=== PATIENT | male | born 1960 | race Caucasian/White ===

== ENCOUNTER 2020-04-24 09:26 | Inpatient (IN) | payer OTHER ==
[2020-04-24] MEDS ORDERED: Sodium Chloride 0.9% 10 ML Syringe FLUSH PRN (09:32)
[2020-04-24] MEDS ORDERED: Ketorolac 30 MG/ML SDV IVPUSH ONE (09:33)
[2020-04-24] MEDS ORDERED: Sodium Chloride 0.9% 1,000 ML IV SCH (09:45)
--- NOTE | 2020-04-24 11:34 | EDM.PDOC ---
ED HPI GENERAL MEDICAL PROBLEM - General Chief Complaint: Respiratory Problem Stated Complaint: [facility] Time Seen by Provider: 04/24/20 09:34 Source of Information: Reports: Patient History Limitations: Reports: No Limitations - History of Present Illness INITIAL COMMENTS - FREE TEXT/NARRATIVE: The patient presents by [facility] for a sore throat and difficulty breathing. He said this started yesterday with a sore throat and then this morning he had some more pain and trouble swallowing. He also has trouble breathing. He has a productive cough. He has a subjective fever and he has chills. He has no abdominal pain, nausea or vomiting. He has a history of hypertension, hypercholesterolemia, diabetes, and obesity. He does not smoke and he has no history of lung problems. Onset: Gradual Duration: Day(s): (yesterday) Location: Reports: Other (throat) Quality: Reports: Sharp Severity: Moderate Improves with: Reports: None Worsens with: Reports: None Associated Symptoms: Reports: Cough, Fever/Chills, Shortness of Breath. 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) ED ROS GENERAL - Review of Systems Review Of Systems: See Below Constitutional: Reports: Fever, Chills HEENT: Reports: Throat Pain Respiratory: Reports: Shortness of Breath, Cough Cardiovascular: Reports: No Symptoms Endocrine: Reports: No Symptoms GI/Abdominal: Reports: No Symptoms : Reports: No Symptoms ED EXAM, GENERAL - Physical Exam Exam: See Below Exam Limited By: No Limitations General Appearance: Alert, No Apparent Distress Ears: Normal External Exam Nose: Normal Inspection Throat/Mouth: Other (erythema and mild edema) Head: Atraumatic, Normocephalic Neck: Normal Inspection, Supple, Non-Tender Respiratory/Chest: No Respiratory Distress, Lungs Clear, Normal Breath Sounds Cardiovascular: Regular Rate, Rhythm, No Edema, No Murmur GI/Abdominal: Soft, Non-Tender, No Organomegaly, No Mass Back Exam: Normal Inspection Extremities: Normal Inspection Course - Vital Signs Last Recorded V/S: Last Vital Signs Temp 96.8 F L 04/24/20 09:32 Pulse 87 04/24/20 09:32 Resp 20 04/24/20 09:32 BP 156/88 H 04/24/20 09:32 Pulse Ox 89 L 04/24/20 09:32 - Orders/Labs/Meds Orders: Active Orders 24 hr Category Date Time Status Cardiac Monitoring [RC] . DIRECTED Care 04/24/20 09:32 Active Oxygen Therapy [RC] PRN Care 04/24/20 09:32 Active Peripheral IV Care [RC] . DIRECTED Care 04/24/20 09:33 Active Chest 1V Frontal [CR] Stat Exams 04/24/20 09:33 Taken Neck Soft Tissue [CR] Stat Exams 04/24/20 09:34 Taken CULTURE BLOOD [BC] Stat Lab 04/24/20 11:27 Ordered CULTURE BLOOD [BC] Stat Lab 04/24/20 11:27 Ordered CULTURE STREP A CONFIRMATION [RM] Stat Lab 04/24/20 09:46 Results D-DIMER QUANTITATIVE [COAG] Stat Lab 04/24/20 11:28 Ordered FERRITIN [CHEM] Stat Lab 04/24/20 11:28 Ordered LACTATE DEHYDROGENASE,LDH [CHEM] Stat Lab 04/24/20 11:28 Ordered PROCALCITONIN [REF] Stat Lab 04/24/20 11:27 Ordered STREP SCRN A RAPID W CULT CONF [RM] Stat Lab 04/24/20 09:46 Results Sodium Chloride 0.9% [Normal Saline] 1,000 ml Med 04/24/20 09:45 Active IV .BOLUS Sodium Chloride 0.9% [Saline Flush] Med 04/24/20 09:32 Active 10 ml FLUSH ASDIRECTED PRN Blood Culture x2 Reflex Set [OM.PC] Stat Oth 04/24/20 11:27 Ordered Peripheral IV Insertion Adult [OM.PC] Stat Oth 04/24/20 09:32 Ordered Medication Orders Sodium Chloride (Normal Saline) 1,000 mls @ 1,000 mls/hr IV .BOLUS CAM Last Admin: 04/24/20 09:44 Dose: 1,000 mls/hr Documented by: FAHAD Sodium Chloride (Saline Flush) 10 ml FLUSH ASDIRECTED PRN PRN Reason: Keep Vein Open Last Admin: 04/24/20 09:44 Dose: 10 ml Documented by: FAHAD Labs: Laboratory Tests 04/24/20 04/24/20 04/24/20 Range/Units 09:51 10:01 10:01 WBC 11.54 H (4.23-9.07) K/mm3 RBC 6.28 H (4.63-6.08) M/mm3 Hgb 18.3 H (13.7-17.5) gm/dl Hct 56.0 H (40.1-51.0) % MCV 89.2 (79.0-92.2) fl MCH 29.1 (25.7-32.2) pg MCHC 32.7 (32.2-35.5) g/dl RDW Std Deviation 49.9 H (35.1-43.9) fL Plt Count 357 H (163-337) K/mm3 MPV 8.3 L (9.4-12.3) fl Neut % (Auto) 82.4 H (34.0-67.9) % Lymph % (Auto) 10.4 L (21.8-53.1) % [place] % (Auto) 6.6 (5.3-12.2) % Eos % (Auto) 0.3 L (0.8-7.0) Baso % (Auto) 0.1 (0.1-1.2) % Neut # (Auto) 9.51 H (1.78-5.38) K/mm3 Lymph # (Auto) 1.20 L (1.32-3.57) K/mm3 [place] # (Auto) 0.76 (0.30-0.82) K/mm3 Eos # (Auto) 0.04 (0.04-0.54) K/mm3 Baso # (Auto) 0.01 (0.01-0.08) K/mm3 Manual Slide Review Abnormal smear Sodium (136-145) mEq/L Potassium (3.5-5.1) mEq/L Chloride (98-107) mEq/L Carbon Dioxide (21-32) mEq/L Anion Gap (5-15) BUN (7-18) mg/dL Creatinine (0.7-1.3) mg/dL Est Cr Clr Drug Dosing mL/min Estimated GFR (MDRD) (>60) mL/min BUN/Creatinine Ratio (14-18) Glucose (74-106) mg/dL Lactic Acid (0.4-2.0) mmol/L Calcium (8.5-10.1) mg/dL Total Bilirubin (0.2-1.0) mg/dL AST (15-37) U/L ALT (16-63) U/L Alkaline Phosphatase (46-116) U/L C-Reactive Protein (<1.0) mg/dL Total Protein (6.4-8.2) g/dl Albumin (3.4-5.0) g/dl Globulin gm/dL Albumin/Globulin Ratio (1-2) Monoscreen Negative (NEGATIVE) SARS-CoV-2 RNA (LUIS ANTONIO) Positive H (NEGATIVE) 04/24/20 04/24/20 Range/Units 10:07 10:07 WBC (4.23-9.07) K/mm3 RBC (4.63-6.08) M/mm3 Hgb (13.7-17.5) gm/dl Hct (40.1-51.0) % MCV (79.0-92.2) fl MCH (25.7-32.2) pg MCHC (32.2-35.5) g/dl RDW Std Deviation (35.1-43.9) fL Plt Count (163-337) K/mm3 MPV (9.4-12.3) fl Neut % (Auto) (34.0-67.9) % Lymph % (Auto) (21.8-53.1) % [place] % (Auto) (5.3-12.2) % Eos % (Auto) (0.8-7.0) Baso % (Auto) (0.1-1.2) % Neut # (Auto) (1.78-5.38) K/mm3 Lymph # (Auto) (1.32-3.57) K/mm3 [place] # (Auto) (0.30-0.82) K/mm3 Eos # (Auto) (0.04-0.54) K/mm3 Baso # (Auto) (0.01-0.08) K/mm3 Manual Slide Review Sodium 138 (136-145) mEq/L Potassium 4.1 (3.5-5.1) mEq/L Chloride 100 (98-107) mEq/L Carbon Dioxide 27 (21-32) mEq/L Anion Gap 15.1 H (5-15) BUN 9 (7-18) mg/dL Creatinine 0.7 (0.7-1.3) mg/dL Est Cr Clr Drug Dosing 112.22 mL/min Estimated GFR (MDRD) > 60 (>60) mL/min BUN/Creatinine Ratio 12.9 L (14-18) Glucose 133 H (74-106) mg/dL Lactic Acid 1.2 (0.4-2.0) mmol/L Calcium 9.5 (8.5-10.1) mg/dL Total Bilirubin 1.5 H (0.2-1.0) mg/dL AST 19 (15-37) U/L ALT 32 (16-63) U/L Alkaline Phosphatase 72 (46-116) U/L C-Reactive Protein 1.5 H* (<1.0) mg/dL Total Protein 8.1 (6.4-8.2) g/dl Albumin 3.9 (3.4-5.0) g/dl Globulin 4.2 gm/dL Albumin/Globulin Ratio 0.9 L (1-2) Monoscreen (NEGATIVE) SARS-CoV-2 RNA (LUIS ANTONIO) (NEGATIVE) Meds: Medications Generic Name Dose Route Start Last Admin Trade Name Freq PRN Reason Stop Dose Admin Sodium Chloride 1,000 mls @ 1,000 mls/hr 04/24/20 09:45 04/24/20 09:44 Normal Saline IV 1,000 mls/hr .BOLUS CAM Administration Sodium Chloride 10 ml 04/24/20 09:32 04/24/20 09:44 Saline Flush FLUSH 10 ml ASDIRECTED PRN Administration Keep Vein Open Discontinued Medications Generic Name Dose Route Start Last Admin Trade Name Freq PRN Reason Stop Dose Admin Ketorolac Tromethamine 30 mg 04/24/20 09:33 04/24/20 09:44 Toradol IVPUSH 04/24/20 09:34 30 mg ONETIME ONE Administration - Re-Assessments/Exams Free Text/Narrative Re-Assessment/Exam: 04/24/20 11:37 I ordered oxygen, IV NS 1L bolus, labs, CXR, lateral x-ray of the neck, COVID 19 and strep. His strep is negative. 04/24/20 11:38 His WBC was elevated at 11.54. His Hgb was elevated at 18.3. His glucose was elevated at 133. His lactic acid is normal. His CRP is elevated at 1.5. His CXR shows chronic appearing interstitial change. No acute cardiopulmonary disease present. The x-ray of his neck shows normal soft tissue of the neck. His mono is negative. His COVID 19 is positive. I feel he may need to be admitted. I called Dr Johns and he agreed. I will give him a dose of dexamethasone. Departure - Departure Time of Disposition: 11:45 Disposition: Admitted As Inpatient 65 Condition: Poor Clinical Impression: COVID-19, Hypoxia, Viral pharyngitis - Discharge Information Referrals: PCP,Not In Area [Primary Care Provider] - Sepsis Event Note (ED) - Evaluation Sepsis Screening Result: No Definite Risk - Focused Exam Vital Signs: Vital Signs Temp Pulse Resp BP Pulse Ox 04/24/20 09:32 96.8 F L 87 20 156/88 H 89 L - My Orders Last 24 Hours: My Active Orders 04/24/20 09:32 Cardiac Monitoring [RC] . DIRECTED Oxygen Therapy [RC] PRN Sodium Chloride 0.9% [Saline Flush] 10 ml FLUSH ASDIRECTED PRN Peripheral IV Insertion Adult [OM.PC] Stat 04/24/20 09:33 Peripheral IV Care [RC] . DIRECTED Chest 1V Frontal [CR] Stat 04/24/20 09:34 Neck Soft Tissue [CR] Stat 04/24/20 09:45 Sodium Chloride 0.9% [Normal Saline] 1,000 ml IV .BOLUS 04/24/20 09:46 CULTURE STREP A CONFIRMATION [RM] Stat STREP SCRN A RAPID W CULT CONF [RM] Stat 04/24/20 11:27 CULTURE BLOOD [BC] Stat CULTURE BLOOD [BC] Stat PROCALCITONIN [REF] Stat Blood Culture x2 Reflex Set [OM.PC] Stat 04/24/20 11:28 D-DIMER QUANTITATIVE [COAG] Stat FERRITIN [CHEM] Stat LACTATE DEHYDROGENASE,LDH [CHEM] Stat - Assessment/Plan Last 24 Hours: My Active Orders 04/24/20 09:32 Cardiac Monitoring [RC] . DIRECTED Oxygen Therapy [RC] PRN Sodium Chloride 0.9% [Saline Flush] 10 ml FLUSH ASDIRECTED PRN Peripheral IV Insertion Adult [OM.PC] Stat 04/24/20 09:33 Peripheral IV Care [RC] . DIRECTED Chest 1V Frontal [CR] Stat 04/24/20 09:34 Neck Soft Tissue [CR] Stat 04/24/20 09:45 Sodium Chloride 0.9% [Normal Saline] 1,000 ml IV .BOLUS 04/24/20 09:46 CULTURE STREP A CONFIRMATION [RM] Stat STREP SCRN A RAPID W CULT CONF [RM] Stat 04/24/20 11:27 CULTURE BLOOD [BC] Stat CULTURE BLOOD [BC] Stat PROCALCITONIN [REF] Stat Blood Culture x2 Reflex Set [OM.PC] Stat 04/24/20 11:28 D-DIMER QUANTITATIVE [COAG] Stat FERRITIN [CHEM] Stat LACTATE DEHYDROGENASE,LDH [CHEM] Stat
[2020-04-24] MEDS ORDERED: Dexamethasone 4 MG/ML SDV IVPUSH ONE (11:36)
[2020-04-24] MEDS ORDERED: Iopamidol 755 Mg/ML 100 ML Bottle IVPUSH ONE (12:08)
[2020-04-24] MEDS ORDERED: Sodium Chloride 0.9% 10 ML Syringe FLUSH ONE (12:08)
[2020-04-24] MEDS ORDERED: Sodium Chloride 0.9% 100 ML IV SCH (12:15)
[2020-04-24] MEDS ORDERED: cefTRIAXone 2 GM in Sodium Chloride 0.9% 100 ML IV SCH (15:00)
--- NOTE | 2020-04-24 15:52 | PCM.HP.2 ---
H&P History of Present Illness - General Date of Service: 04/24/20 Admit Problem/Dx: Admission Diagnosis/Problem Admission Diagnosis/Problem Pharyngitis - History of Present Illness Initial Comments - Free Text/Narative: 59-year-old male with history of diabetes, hypertension, hyperlipidemia, and obesity presented to the emergency department with 1 to 2-day history of pharyngitis. He states that he was eating a [place] and found that he had to chew it very carefully and small yesterday. He then tried to drink some soup and was having difficulty swallowing it. Patient then fell asleep with his head down on a table and when he woke up he could not lift his head off his chin off of his chest without great difficulty and discomfort. He states he has had some difficulty breathing and is having difficulty with his secretions. He denies any GI complaints including nausea, vomiting, abdominal pain, or change in bowels. He has had some subjective fever. In the emergency department His strep test was done which was negative. He was swabbed for coronavirus which was positive. White count was slightly elevated 11.54 and hemoglobin was elevated at 18.3. Platelet count 357. Lactic acid was normal at 1.2 and C- reactive protein was slightly elevated at 1.5. He was given IV fluid bolus of 1000 mL. He had Toradol for pain. D-dimer was elevated at 2.19 so a CTA was attempted. Patient was unable to lay back flat because he felt like he could not breathe and he could not swallow. Patient was then moved to the medical floor for further evaluation and treatment. - Related Data Allergies/Adverse Reactions: Allergies Allergy/AdvReac Type Severity Reaction Status Date / Time No Known Allergies Allergy Verified 04/24/20 09:36 Home Medications: Home Meds Empagliflozin [Jardiance] 10 mg PO DAILY 04/24/20 [History] Liraglutide [Victoza] 1 injection SQ DAILY 04/24/20 [History] Simvastatin 20 mg PO DAILY 04/24/20 [History] lisinopriL [Prinivil] 20 mg PO DAILY 04/24/20 [History] metFORMIN HCl [Metformin HCl] 1,000 mg PO BID 04/24/20 [History] Past Medical History Cardiovascular History: Reports: High Cholesterol, Hypertension Other Respiratory History: COVID positive, pneumonia Neurological History: Reports: None Psychiatric History: Reports: None Endocrine/Metabolic History: Reports: Diabetes, Type II, Obesity/BMI 30+ - Infectious Disease History Infectious Disease History: Reports: None, Novel Coronavirus - Past Surgical History GI Surgical History: Reports: Hernia, Abdominal (as an ) Social & Family History - Family History Family Medical History: Noncontributory - Tobacco Use Tobacco Use Status *Q: Never Tobacco User Years of Tobacco use: 30 Packs/Tins Daily: 1 Second Hand Smoke Exposure: No - Caffeine Use Caffeine Use: Reports: Coffee Caffeine Use Comment: 8 cups a day - Recreational Drug Use Recreational Drug Use: No - Living Situation & Occupation Living situation: Reports: , with Spouse 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 Exam - Exam Exam: See Below - Vital Signs Vital Signs: Last Vital Signs Temp 98.6 F 04/24/20 13:52 Pulse 83 04/24/20 13:51 Resp 32 H 04/24/20 13:52 BP 160/79 H 04/24/20 13:52 Pulse Ox 90 L 04/24/20 13:51 Weight: 273 lb 6.4 oz - Exam Quality Assessment: Supplemental Oxygen (Nasal cannula at 4 L) General: Alert, Oriented, Moderate Distress HEENT: Conjunctiva Clear. No: Mucosa Moist & [place] (Mildly erythematous), Posterior Pharynx Clear (Exudate ) Neck: Trachea Midline. No: Supple, Full Range of Motion (Head was flexed to his chin and he had great difficulty lifting his chin.), Lymphadenopathy Lungs: Rales (Bibasilar). No: Normal Respiratory Effort (Increased) Cardiovascular: Regular Rate, Regular Rhythm GI/Abdominal Exam: Normal Bowel Sounds, Soft, Non-Tender, No Organomegaly, No Distention, No Abnormal Bruit, No Mass, Pelvis Stable Back Exam: Normal Inspection, Muscle Spasm (Neck) Extremities: Normal Inspection, Normal Range of Motion, Non-Tender, No Pedal Edema, Normal Capillary Refill Neuro Extensive - Mental Status: Alert, Oriented x3, Normal Mood/Affect, Normal Cognition, Memory Intact Psychiatric: Alert, Anxious - Patient Data Lab Results Last 24 hrs: Laboratory Results - last 24 hr 04/24/20 04/24/20 04/24/20 Range/Units 09:51 10:01 10:01 WBC 11.54 H (4.23-9.07) K/mm3 RBC 6.28 H (4.63-6.08) M/mm3 Hgb 18.3 H (13.7-17.5) gm/dl Hct 56.0 H (40.1-51.0) % MCV 89.2 (79.0-92.2) fl MCH 29.1 (25.7-32.2) pg MCHC 32.7 (32.2-35.5) g/dl RDW Std Deviation 49.9 H (35.1-43.9) fL Plt Count 357 H (163-337) K/mm3 MPV 8.3 L (9.4-12.3) fl Neut % (Auto) 82.4 H (34.0-67.9) % Lymph % (Auto) 10.4 L (21.8-53.1) % [place] % (Auto) 6.6 (5.3-12.2) % Eos % (Auto) 0.3 L (0.8-7.0) Baso % (Auto) 0.1 (0.1-1.2) % Neut # (Auto) 9.51 H (1.78-5.38) K/mm3 Lymph # (Auto) 1.20 L (1.32-3.57) K/mm3 [place] # (Auto) 0.76 (0.30-0.82) K/mm3 Eos # (Auto) 0.04 (0.04-0.54) K/mm3 Baso # (Auto) 0.01 (0.01-0.08) K/mm3 Manual Slide Review Abnormal smear D-Dimer, Quantitative (0.19-0.50) mg/L Sodium (136-145) mEq/L Potassium (3.5-5.1) mEq/L Chloride (98-107) mEq/L Carbon Dioxide (21-32) mEq/L Anion Gap (5-15) BUN (7-18) mg/dL Creatinine (0.7-1.3) mg/dL Est Cr Clr Drug Dosing mL/min Estimated GFR (MDRD) (>60) mL/min BUN/Creatinine Ratio (14-18) Glucose (74-106) mg/dL Lactic Acid (0.4-2.0) mmol/L Calcium (8.5-10.1) mg/dL Ferritin (26-388) ng/ml Total Bilirubin (0.2-1.0) mg/dL AST (15-37) U/L ALT (16-63) U/L Alkaline Phosphatase (46-116) U/L Lactate Dehydrogenase (85-227) U/L C-Reactive Protein (<1.0) mg/dL Total Protein (6.4-8.2) g/dl Albumin (3.4-5.0) g/dl Globulin gm/dL Albumin/Globulin Ratio (1-2) Monoscreen Negative (NEGATIVE) SARS-CoV-2 RNA (LUIS ANTONIO) Positive H (NEGATIVE) 04/24/20 04/24/20 04/24/20 Range/Units 10:01 10:01 10:01 WBC (4.23-9.07) K/mm3 RBC (4.63-6.08) M/mm3 Hgb (13.7-17.5) gm/dl Hct (40.1-51.0) % MCV (79.0-92.2) fl MCH (25.7-32.2) pg MCHC (32.2-35.5) g/dl RDW Std Deviation (35.1-43.9) fL Plt Count (163-337) K/mm3 MPV (9.4-12.3) fl Neut % (Auto) (34.0-67.9) % Lymph % (Auto) (21.8-53.1) % [place] % (Auto) (5.3-12.2) % Eos % (Auto) (0.8-7.0) Baso % (Auto) (0.1-1.2) % Neut # (Auto) (1.78-5.38) K/mm3 Lymph # (Auto) (1.32-3.57) K/mm3 [place] # (Auto) (0.30-0.82) K/mm3 Eos # (Auto) (0.04-0.54) K/mm3 Baso # (Auto) (0.01-0.08) K/mm3 Manual Slide Review D-Dimer, Quantitative 2.19 H (0.19-0.50) mg/L Sodium (136-145) mEq/L Potassium (3.5-5.1) mEq/L Chloride (98-107) mEq/L Carbon Dioxide (21-32) mEq/L Anion Gap (5-15) BUN (7-18) mg/dL Creatinine (0.7-1.3) mg/dL Est Cr Clr Drug Dosing mL/min Estimated GFR (MDRD) (>60) mL/min BUN/Creatinine Ratio (14-18) Glucose (74-106) mg/dL Lactic Acid (0.4-2.0) mmol/L Calcium (8.5-10.1) mg/dL Ferritin 120 (26-388) ng/ml Total Bilirubin (0.2-1.0) mg/dL AST (15-37) U/L ALT (16-63) U/L Alkaline Phosphatase (46-116) U/L Lactate Dehydrogenase 225 (85-227) U/L C-Reactive Protein (<1.0) mg/dL Total Protein (6.4-8.2) g/dl Albumin (3.4-5.0) g/dl Globulin gm/dL Albumin/Globulin Ratio (1-2) Monoscreen (NEGATIVE) SARS-CoV-2 RNA (LUIS ANTONIO) (NEGATIVE) 04/24/20 04/24/20 Range/Units 10:07 10:07 WBC (4.23-9.07) K/mm3 RBC (4.63-6.08) M/mm3 Hgb (13.7-17.5) gm/dl Hct (40.1-51.0) % MCV (79.0-92.2) fl MCH (25.7-32.2) pg MCHC (32.2-35.5) g/dl RDW Std Deviation (35.1-43.9) fL Plt Count (163-337) K/mm3 MPV (9.4-12.3) fl Neut % (Auto) (34.0-67.9) % Lymph % (Auto) (21.8-53.1) % [place] % (Auto) (5.3-12.2) % Eos % (Auto) (0.8-7.0) Baso % (Auto) (0.1-1.2) % Neut # (Auto) (1.78-5.38) K/mm3 Lymph # (Auto) (1.32-3.57) K/mm3 [place] # (Auto) (0.30-0.82) K/mm3 Eos # (Auto) (0.04-0.54) K/mm3 Baso # (Auto) (0.01-0.08) K/mm3 Manual Slide Review D-Dimer, Quantitative (0.19-0.50) mg/L Sodium 138 (136-145) mEq/L Potassium 4.1 (3.5-5.1) mEq/L Chloride 100 (98-107) mEq/L Carbon Dioxide 27 (21-32) mEq/L Anion Gap 15.1 H (5-15) BUN 9 (7-18) mg/dL Creatinine 0.7 (0.7-1.3) mg/dL Est Cr Clr Drug Dosing 112.22 mL/min Estimated GFR (MDRD) > 60 (>60) mL/min BUN/Creatinine Ratio 12.9 L (14-18) Glucose 133 H (74-106) mg/dL Lactic Acid 1.2 (0.4-2.0) mmol/L Calcium 9.5 (8.5-10.1) mg/dL Ferritin (26-388) ng/ml Total Bilirubin 1.5 H (0.2-1.0) mg/dL AST 19 (15-37) U/L ALT 32 (16-63) U/L Alkaline Phosphatase 72 (46-116) U/L Lactate Dehydrogenase (85-227) U/L C-Reactive Protein 1.5 H* (<1.0) mg/dL Total Protein 8.1 (6.4-8.2) g/dl Albumin 3.9 (3.4-5.0) g/dl Globulin 4.2 gm/dL Albumin/Globulin Ratio 0.9 L (1-2) Monoscreen (NEGATIVE) SARS-CoV-2 RNA (LUIS ANTONIO) (NEGATIVE) Result Diagrams: 04/24/20 10:01 04/24/20 10:07 Domenico Results Last 24 hrs: Microbiology 04/24/20 09:46 Group A Streptococcus Rapid Screen - Final Throat NEGATIVE STREP A SCREEN REFERENCE RANGE: NEGATIVE Sepsis Event Note - Evaluation Sepsis Screening Result: No Definite Risk - Focused Exam Vital Signs: Vital Signs Temp Temp Pulse Pulse Resp BP BP 04/24/20 13:52 98.6 F 32 H 160/79 H 04/24/20 13:51 83 154/101 H 04/24/20 13:05 98.1 F 77 16 103/90 04/24/20 12:07 98.2 F 82 20 139/66 04/24/20 09:32 96.8 F L 87 20 156/88 H Pulse Ox 04/24/20 13:52 04/24/20 13:51 90 L 04/24/20 13:05 92 L 04/24/20 12:07 98 04/24/20 09:32 89 L - Problem List (1) COVID-19 SNOMED Code(s): 190378429 ICD Code: U07.1 - COVID-19 Status: Acute (2) Hypoxia SNOMED Code(s): 703695418 ICD Code: R09.02 - HYPOXEMIA Status: Acute (3) Viral pharyngitis SNOMED Code(s): 6448430 ICD Code: J02.9 - ACUTE PHARYNGITIS, UNSPECIFIED Status: Acute Problem List Initiated/Reviewed/Updated: Yes Orders Last 24hrs: Active Orders 24 hr Category Date Time Status Admission Status [Patient Status] [ADT] Routine ADT 04/24/20 11:59 Active Cardiac Monitoring [RC] . DIRECTED Care 04/24/20 09:32 Active Oxygen Therapy [RC] PRN Care 04/24/20 09:32 Active Peripheral IV Care [RC] . DIRECTED Care 04/24/20 09:33 Active Ang Chest [CT] Stat Exams 04/24/20 11:52 Ordered Chest 1V Frontal [CR] Stat Exams 04/24/20 09:33 Taken Neck Soft Tissue [CR] Stat Exams 04/24/20 09:34 Taken CULTURE BLOOD [BC] Stat Lab 04/24/20 10:01 Received CULTURE BLOOD [BC] Stat Lab 04/24/20 10:11 Received CULTURE STREP A CONFIRMATION [RM] Stat Lab 04/24/20 09:46 Results PROCALCITONIN [REF] Stat Lab 04/24/20 10:01 Received STREP SCRN A RAPID W CULT CONF [RM] Stat Lab 04/24/20 09:46 Results Sodium Chloride 0.9% [Normal Saline] 1,000 ml Med 04/24/20 09:45 Active IV .BOLUS Sodium Chloride 0.9% [Saline Flush] Med 04/24/20 09:32 Active 10 ml FLUSH ASDIRECTED PRN cefTRIAXone [Rocephin] 2 gm Med 04/24/20 15:00 Active Sodium Chloride 0.9% [Normal Saline] 100 ml IV Q24H Blood Culture x2 Reflex Set [OM.PC] Stat Oth 04/24/20 11:27 Ordered Peripheral IV Insertion Adult [OM.PC] Stat Oth 04/24/20 09:32 Ordered Medication Orders Sodium Chloride (Normal Saline) 1,000 mls @ 1,000 mls/hr IV .BOLUS CAM Last Admin: 04/24/20 09:44 Dose: 1,000 mls/hr Documented by: FAHAD Ceftriaxone Sodium 2 gm/ (Sodium Chloride) 100 mls @ 200 mls/hr IV Q24H CAM Last Admin: 04/24/20 15:11 Dose: 200 mls/hr Documented by: GORDON Sodium Chloride (Saline Flush) 10 ml FLUSH ASDIRECTED PRN PRN Reason: Keep Vein Open Last Admin: 04/24/20 09:44 Dose: 10 ml Documented by: FAHAD Assessment/Plan Comment:: Assessment 59-year-old male with history of diabetes and hypertension presented to the emergency department with pharyngitis. Patient was found to be Covid positive and hypoxic. When he was moved to the floor his hypoxemia worsened and he required 4 L nasal cannula. There was concern about his airway since he was unable to swallow his secretions although his exam did not show a significant amount of swelling. Also, we were unable to do a CT scan of his neck or chest because he was unable to lay flat. It was felt we were unable to give him full and appropriate care here in the hospital and I requested Dr. Roldan to come back and reevaluate him. Dr. Roldan agreed that he would best be served if he was transferred to a tertiary care hospital where ENT could evaluate him and there would be more specialized care if he lost his airway. Patient returned to the emergency department where he was ultimately intubated so they can fly him to [place]. - Mortality Measure Prognosis:: Poor
[2020-04-24] MEDS ORDERED: Propofol 200 MG/20 ML SDV ONE (19:00)
[2020-04-24] MEDS ORDERED: Rocuronium 50 MG/5 ML Vial ONE ×2 (19:00→19:37)
[2020-04-24] MEDS ORDERED: LORazepam 2 MG/ML SDV IVPUSH ONE (19:00)
[2020-04-24] MEDS ORDERED: LORazepam 2 MG/ML SDV ONE (19:14)
[2020-04-24] MEDS ORDERED: REMDESIVIR (EUA) 100 MG ONE ×2 (20:12→20:15)
[2020-04-24] MEDS ORDERED: Sodium Chloride 0.9% 250 ML ONE (20:19)
--- NOTE | 2020-04-25 10:02 | CR ---
PROCEDURE INFORMATION: Exam: XR Soft Tissue Neck Exam date and time: 04/24/2020 10:22 AM Age: 59 years old Clinical indication: Other: Throat swelling TECHNIQUE: Imaging protocol: XR of the soft tissues of the neck. COMPARISON: No relevant prior studies available. FINDINGS: Airway: Normal. No abnormal narrowing. Soft tissues: Normal. Normal epiglottis. Bones/joints: Moderate grade degenerative changes are noted within the cervical spine. IMPRESSION: Normal soft tissue neck. Thank you for allowing us to participate in the care of your patient. Dictated and Authenticated by: Raman Zepeda MD 04/24/2020 11:49 AM Central Time ([place] & [place]) [facility]
--- NOTE | 2020-04-25 10:03 | CR ---
PROCEDURE INFORMATION: Exam: XR Chest, 1 View Exam date and time: 04/24/2020 10:26 AM Age: 59 years old Clinical indication: Chest pain; Type not specified TECHNIQUE: Imaging protocol: XR of the chest Views: 1 view. COMPARISON: No relevant prior studies available. FINDINGS: Lungs: Chronic appearing interstitial changes are present within the lungs. No pneumonia or pulmonary edema. Pleural space: Unremarkable. No pleural effusion. No pneumothorax. Heart/Mediastinum: Unremarkable. No cardiomegaly. Bones/joints: Unremarkable. IMPRESSION: Chronic appearing interstitial change. No acute cardiopulmonary disease present. Thank you for allowing us to participate in the care of your patient. Dictated and Authenticated by: Raman Zepeda MD 04/24/2020 11:48 AM Central Time ([place] & [place]) [facility]
--- NOTE | 2020-04-25 10:04 | CR ---
"PROCEDURE INFORMATION: Exam: XR Chest, 1 View Exam date and time: 04/24/2020 7:39 PM Age: 59 years old Clinical indication: Shortness of breath; Patient HX: S/P intubation and og tube placement, elevated BP and diminished breath sounds TECHNIQUE: Imaging protocol: XR of the chest Views: 1 view. COMPARISON: DX Chest 1V Frontal 04/24/2020 10:26 AM FINDINGS: Tubes, catheters and devices: Tip of endotracheal tube 3.7 cm proximal to the urszula. Tip of NG tube located in the left upper quadrant consistent with an intragastric location. Lungs: 2.3 cm opacity in the right pulmonary apex may indicate a focus of pneumonitis although a mass is not excluded. Apparent volume loss in the right hemithorax may be related to patient rotation. Increased parenchymal opacity right lower lobe may represent an infiltrate. Remaining lungs clear. Pleural space: Unremarkable. No pleural effusion. No pneumothorax. Heart/Mediastinum: Unremarkable. No cardiomegaly. Bones/joints: Unremarkable. IMPRESSION: 1. 2.3 cm opacity in the right pulmonary apex may indicate a focus of pneumonitis although a mass is not excluded. 2. Apparent volume loss in the right hemithorax may be related to patient rotation. Increased opacity right lower lobe may represent an infiltrate. Thank you for allowing us to participate in the care of your patient. JAMI MCINTYRE | Final Radiology Report CONFIDENTIALITY STATEMENT This report is intended only for use by the referring physician, and only in accordance with law. If you received this in error, call [phone]. Page 2 of 2 Dictated and Authenticated by: Xavier Jay MD 04/24/2020 9:34 PM Central Time ([place] & [place]) RUSTY"
--- NOTE | 2020-04-25 22:14 | PCM.DCSUM1 ---
Discharge Summary - Hospital Course HPI Initial Comments: 59-year-old male with history of diabetes, hypertension, hyperlipidemia, and obesity presented to the emergency department with 1 to 2-day history of pharyngitis. He states that he was eating a [place] and found that he had to chew it very carefully and small yesterday. He then tried to drink some soup and was having difficulty swallowing it. Patient then fell asleep with his head down on a table and when he woke up he could not lift his head off his chin off of his chest without great difficulty and discomfort. He states he has had some difficulty breathing and is having difficulty with his secretions. He denies any GI complaints including nausea, vomiting, abdominal pain, or change in bowels. He has had some subjective fever. In the emergency department His strep test was done which was negative. He was swabbed for coronavirus which was positive. White count was slightly elevated 11.54 and hemoglobin was elevated at 18.3. Platelet count 357. Lactic acid was normal at 1.2 and C- reactive protein was slightly elevated at 1.5. He was given IV fluid bolus of 1000 mL. He had Toradol for pain. D-dimer was elevated at 2.19 so a CTA was attempted. Patient was unable to lay back flat because he felt like he could not breathe and he could not swallow. Patient was then moved to the medical floor for further evaluation and treatment. - Discharge Data Discharge Date: 04/24/20 Discharge Disposition: DC/Tfer to Acute Hospital 02 Condition: Good - Referral to Home Health Primary Care Physician: PCP Not In Area - Discharge Diagnosis/Problem(s) (1) COVID-19 SNOMED Code(s): 830808742 ICD Code: U07.1 - COVID-19 Status: Acute (2) Hypoxia SNOMED Code(s): 197779290 ICD Code: R09.02 - HYPOXEMIA Status: Acute (3) Viral pharyngitis SNOMED Code(s): 4377428 ICD Code: J02.9 - ACUTE PHARYNGITIS, UNSPECIFIED Status: Acute - Patient Summary/Data Hospital Course: 59-year-old male with history of diabetes and hypertension presented to the emergency department with pharyngitis. Patient was found to be Covid positive and hypoxic. When he was moved to the floor his hypoxemia worsened and he required 4 L nasal cannula. There was concern about his airway since he was unable to swallow his secretions although his exam did not show a significant amount of swelling. Also, we were unable to do a CT scan of his neck or chest because he was unable to lay flat. It was felt we were unable to give him full and appropriate care here in the hospital and I requested Dr. Roldan to come back and reevaluate him. Dr. Roldan agreed that he would best be served if he was transferred to a tertiary care hospital where ENT could evaluate him and there would be more specialized care if he lost his airway. Patient returned to the emergency department where he was ultimately intubated so they can fly him to [place]. - Discharge Plan Home Medications: Home Meds Empagliflozin [Jardiance] 10 mg PO DAILY 04/24/20 [History] Liraglutide [Victoza] 1 injection SQ DAILY 04/24/20 [History] Simvastatin 20 mg PO DAILY 04/24/20 [History] lisinopriL [Prinivil] 20 mg PO DAILY 04/24/20 [History] metFORMIN HCl [Metformin HCl] 1,000 mg PO BID 04/24/20 [History] Forms: ED Department Discharge Referrals: PCP,Not In Area [Primary Care Provider] - - Discharge Summary/Plan Comment DC Time >30 min.: No - Patient Data Vitals - Most Recent: Last Vital Signs Temp 98.6 F 04/24/20 13:52 Pulse 72 04/24/20 18:22 Resp 32 H 04/24/20 13:52 BP 160/79 H 04/24/20 13:52 Pulse Ox 92 L 04/24/20 18:22 Weight - Most Recent: 273 lb 6.4 oz Lab Results - Last 24 hrs: Laboratory Results - last 24 hr 04/24/20 Range/Units 10:01 Procalcitonin <0.05 (<0.10) ng/mL GOLD Results - Last 24 hrs: Microbiology 04/24/20 10:11 Aerobic Blood Culture - Preliminary Blood - Venous - Lab Draw NO GROWTH AFTER 1 DAY Anaerobic Blood Culture - Preliminary NO GROWTH AFTER 1 DAY 04/24/20 10:01 Aerobic Blood Culture - Preliminary Blood - Venous NO GROWTH AFTER 1 DAY Anaerobic Blood Culture - Preliminary NO GROWTH AFTER 1 DAY 04/24/20 09:46 Quick Strep Confirmation Culture - Preliminary Throat Group A Streptococcus Rapid Screen - Final NEGATIVE STREP A SCREEN REFERENCE RANGE: NEGATIVE Med Orders - Current: Current Medications Discontinued Medications Dexamethasone (Dexamethasone) 6 mg IVPUSH ONETIME ONE Stop: 04/24/20 11:37 Last Admin: 04/24/20 12:05 Dose: 6 mg Documented by: Sodium Chloride (Normal Saline) 1,000 mls @ 1,000 mls/hr IV .BOLUS CAM Last Admin: 04/24/20 09:44 Dose: 1,000 mls/hr Documented by: Sodium Chloride (Normal Saline) 100 mls @ 60 mls/hr IV ASDIRECTED CAM Ceftriaxone Sodium 2 gm/ (Sodium Chloride) 100 mls @ 200 mls/hr IV Q24H CAM Last Admin: 04/24/20 15:11 Dose: 200 mls/hr Documented by: Remdesivir 200 mg/ Sodium (Chloride) 250 mls @ 250 mls/hr IV ONETIME ONE Stop: 04/24/20 20:09 Last Admin: 04/24/20 20:26 Dose: 250 mls/hr Documented by: Remdesivir (Remdesivir (Eua)) Confirm Administered Dose 100 mls @ as directed .ROUTE .STK-MED ONE Stop: 04/24/20 20:13 Remdesivir (Remdesivir (Eua)) Confirm Administered Dose 100 mls @ as directed .ROUTE .STK-MED ONE Stop: 04/24/20 20:16 Sodium Chloride (Normal Saline) Confirm Administered Dose 250 mls @ as directed .ROUTE .STK-MED ONE Stop: 04/24/20 20:20 Iopamidol (Isovue-370 (76%)) 100 ml IVPUSH ONETIME ONE Stop: 04/24/20 12:09 Ketorolac Tromethamine (Toradol) 30 mg IVPUSH ONETIME ONE Stop: 04/24/20 09:34 Last Admin: 04/24/20 09:44 Dose: 30 mg Documented by: Lorazepam (Ativan) Confirm Administered Dose 2 mg .ROUTE .STK-MED ONE Stop: 04/24/20 19:15 Last Admin: 04/25/20 06:25 Dose: Not Given Documented by: Lorazepam (Ativan) 1 mg IVPUSH ONETIME ONE Stop: 04/24/20 19:01 Last Admin: 04/24/20 19:15 Dose: 1 mg Documented by: Propofol (Diprivan 20 Ml) 200 mg .ROUTE .STK-MED ONE Stop: 04/24/20 19:01 Rocuronium [place] (Zemuron) 100 mg .ROUTE .STK-MED ONE Stop: 04/24/20 19:01 Rocuronium [place] (Zemuron) Confirm Administered Dose 50 mg .ROUTE .STK-MED ONE Stop: 04/24/20 19:38 Sodium Chloride (Saline Flush) 10 ml FLUSH ASDIRECTED PRN PRN Reason: Keep Vein Open Last Admin: 04/24/20 09:44 Dose: 10 ml Documented by: Sodium Chloride (Saline Flush) 10 ml FLUSH ONETIME ONE Stop: 04/24/20 12:09
== END 2020-04-24 20:50 | DRG 208 ==
LOC: JD.ED 09:26 → JD.MS 11:59
PROVIDERS: ADMIT Family Medicine; ATTEND Family Medicine
PROC: 0BH17EZ Insertion of Endotracheal Airway into Trachea, Via Natural or Artificial Opening (ICD-10-PCS; principal; 2020-04-24)
PROC: 5A1935Z Respiratory Ventilation, Less than 24 Consecutive Hours (ICD-10-PCS; 2020-04-24)
PROC: 0DH67UZ Insertion of Feeding Device into Stomach, Via Natural or Artificial Opening (ICD-10-PCS; 2020-04-24)
DX: U07.1 COVID-19 (principal); Z68.41 Body mass index [BMI] 40.0-44.9, adult; J02.9 Acute pharyngitis, unspecified; E11.9 Type 2 diabetes mellitus without complications; I10 Essential (primary) hypertension; E78.5 Hyperlipidemia, unspecified; E78.00 Pure hypercholesterolemia, unspecified; E66.9 Obesity, unspecified; Z79.84 Long term (current) use of oral hypoglycemic drugs; Z79.899 Other long term (current) drug therapy; Z87.01 Personal history of pneumonia (recurrent)
CPT/HCPCS: 31500; 36415; 43752; 51702; 70360; 70360-26; 71045; 71045-26; 80053; 82728; 83605; 83615; 84145; 85025; 85379; 86140; 86308; 87040; 87081; 87430; 96361; 96365; 96367; 96375; 99285-25; J0696; J1100; J1885; J2060; J2704; J7030; J7050; U0002